=== PATIENT | female | born 1955 | race Caucasian/White ===

== ENCOUNTER 2018-12-18 03:41 | Observation (INO) ==
[2018-12-18] MEDS ORDERED: NS 1,000 ML IV ONE (04:47)
[2018-12-18] MEDS ORDERED: ZOFRAN IV ONE (04:47)
--- NOTE | 2018-12-18 04:53 | PROVIDER DOCUMENTATION ---
HPI-General Adult - General Chief Complaint: Syncope Stated Complaint: orthostatic hypotension Time Seen by Provider: 12/18/18 04:46 Source: patient, family Allergies/Adverse Reactions: Patient Allergies Allergy/AdvReac Type Severity Reaction Status Date / Time Penicillins Allergy Unknown Verified 12/18/18 04:04 Home Medications: Home Medication List Medication Instructions Recorded Confirmed Last Taken Type Meloxicam 1 tab PO DAILY 12/18/18 12/18/18 12/17/18 History Omeprazole 1 cap PO DAILY 12/18/18 12/18/18 12/17/18 History Tramadol HCl 1 tab PO TID 12/18/18 12/18/18 12/17/18 History - History of Present Illness -Gen Adult Nature of Presenting Problems: PT ABLE TO GIVE A GOOD HX AND SUPLIMENTS. PT REPORTS UP TONIGHT TO GO TO BATHROOM, #2, FELT WEAK AND FAINTY, TRIED TO GET FROM TOILET BACK TO BED AND SYNCOPE BREIFLY ON BATHROOM FLOOR, DEFECATED A 2ND TIME IN THE FLOOR, PRESENT AND CLEANED HER UP PRIOR TO TRANSPORT. EMS REPORTED 'TILT' ON INITIAL EVALUATION. DENIES RECENT FEVER, URI,COUGH,N/V/D ,DYSURIA,FEVER OR CHILLS. LOTS OF SITUATIONAL STRESS. Review of Systems - Adult - REVIEW OF SYSTEMS - ADULT Constitutional: reports: no symptoms reported. denies: chills, fever Eyes: reports: no symptoms reported Ears, Nose, Mouth & Throat: reports: no symptoms reported Cardiovascular: reports: no symptoms reported Respiratory: reports: no symptoms reported Gastrointestinal: reports: no symptoms reported Genitourinary: reports: no symptoms reported Musculoskeletal: reports: no symptoms reported Integumentary: reports: no symptoms reported Neurological: reports: no symptoms reported Psychiatric: reports: no symptoms reported Endocrine: reports: no symptoms reported Hematologic/Lymphatic: reports: no symptoms reported Allergic/Immunologic: reports: no symptoms reported All Other Systems: Reviewed and Negative Past History - Adult - PAST MEDICAL HISTORY-ADULT Review of Records: reports: Nursing Assessment Review, Medications Reviewed, Social history reviewed & non-contributory. Major Childhood Illnesses: reports: denies history Cardiovascular: reports: denies history Respiratory: reports: denies history Gastrointestinal: reports: denies history Obstetrical/Gynecological: reports: denies history Genitourinary: reports: denies history Musculoskeletal: reports: denies history Neurological: reports: denies history Endocrine/Immune: reports: denies history Other Conditions: reports: denies history Physical Exam-General - PHYSICAL EXAM-ADULT Initial Vital Signs Reviewed: Yes - CONSTITUTIONAL General Appearance: appears well, alert, no apparent distress - EYES Eyes: PERRL/EOMI, pink conjunctivae - HEAD, EARS, NOSE, MOUTH & THROAT HENMT: normocephalic/atraumatic, moist mucous membranes - NECK Neck: non-tender, full range of motion, supple - RESPIRATORY Respiratory: chest non-tender, lungs clear, normal breath sounds, no respiratory distress, no accessory muscle use - CARDIOVASCULAR Cardiovascular: normal peripheral pulses, regular rate, rhythm, no edema, no JVD , no murmur - GASTROINTESTINAL (ABDOMEN) Abdominal Exam: normal bowel sounds, non tender, soft, no organomegaly, no pulsatile mass - MUSCULOSKELETAL Extremity: normal range of motion, non-tender, normal gait - SKIN Integumentary: normal color, normal turgor, warm/dry. negative: jaundice - NEUROLOGIC Neurologic: [employer] portal developer II-XII nml as tested, grossly normal, no motor/sensory deficits. negative: abnormal [employer] portal developer II-XII, facial droop, motor weakness, sensory deficit - PSYCHIATRIC Psych/Mental Status: normal mood/affect, normal thought content, normal thought process, oriented x 3 Progress - PLAN OF CARE/RESULTS Progress/Plan/Lab Results: Vital Signs - 8 hr 12/18/18 04:27 Temperature 97.6 F Pulse Rate 88 Respiratory Rate 14 Blood Pressure 107/90 O2 Sat by Pulse Oximetry 100 Laboratory Results - last 24 hr 12/18/18 04:40 POC Glucose 97 Orders Category Date Time Status Cardiac Monitoring DIRECTED Care 12/18/18 04:47 Ordered Saline Loc NOW Care 12/18/18 04:47 Ordered CBC WITH ELECTRONIC DIFF [HEME] Stat Lab 12/18/18 04:47 Uncollected COMPREHENSIVE METABOLIC PANEL [CHEM] Stat Lab 12/18/18 04:47 Uncollected LACTATE, PLASMA [CHEM] Stat Lab 12/18/18 04:48 Uncollected TROPONIN T Stat Lab 12/18/18 04:48 Uncollected URINALYSIS W/POSS RFLX CULT [URINALYSIS] Stat Lab 12/18/18 04:48 Uncollected URINE DRUG SCREEN Stat Lab 12/18/18 04:48 Uncollected Ns 1000 ml IV Bolus X1 Med 12/18/18 04:47 Ordered 0.9% Sodium Chloride Inj [Ns] 1,000 ml IV 999 mls/hr Ondansetron [Zofran] Med 12/18/18 04:47 Once 4 mg IV NOW ONE EKG [EKG] Stat Ther 12/18/18 04:47 Ordered Result Diagrams: 12/18/18 05:51 12/18/18 05:51 - REASSESSMENT Reassessment #1 Time Reassessed: 08:14 Status: improving (Seen and examined by me. Case discussed with Dr. Chin at shift change. Awaiting labs for syncope. Patient was also incontinent after syncope. Has elevated D-Dimer. Will check CTA to r/o PE. Patient also has has sacral pain on exam after syncope, so will obtain imaging to r/o fracture.) Reassessment #2 Time Reassessed: 10:07 Status: improving (Given IVF, tylenol for pain, zofran for nausea.) - EKG 1 Time of EKG reading by physician:: 10:15 EKG Read and Signed by:: Cole Vizcaino EKG Interpretation (*Must complete 3 of following elements*): Normal Rate: 90 Rhythm: NSR [place]: normal QRS: normal, other (early transition) [place] Interval: normal ST Wave: normal Prior EKG Comparison: no prior EKG - CT/MRI 1 CT Study: Head Impression: Normal, See EMR Report ( Signed EXAM: CT HEAD W/O CONTRAST 12/18/2018 HISTORY: syncope TECHNIQUE: This exam was performed using automated exposure control, adjustment of mA or kV according to patient size, and/or use of iterative reconstruction technique. COMMENT: There is no evidence of mass effect, bleed, or abnormal extra-axial fluid collection. The visualized paranasal sinuses are clear. The calvarium is intact. IMPRESSION: No evidence of acute intracranial disease. Electronically signed by Calvin Durant 12/18/2018 8:58 AM 12/18/18 0858 Interpreting Physician: Calvin Durant MD Dictated Date/Time: 12/18/18 0857 cc: Cole Vizcaino MD; Oscar Jones MD) 2 CT Study: Pelvis Impression: Abnormal ( EXAM: CT PELVIS W/O CONTRAST 12/18/2018 HISTORY: syncope, sacral pain TECHNIQUE: This exam was performed using automated exposure control, adjustment of mA or kV according to patient size, and/or use of iterative reconstruction technique. COMMENT: There is vacuum disc phenomenon at the L5-S1 level. There are severe facet changes present at L4-5 and there is mild spinal stenosis at L4-5. There is disc bulge at the L5-S1 level. There is no evidence of fracture or dislocation. There is a bone island in the proximal right femur. No abnormal fluid collections are present. IMPRESSION: No evidence of acute bony abnormality. Electronically signed by Calvin Durant 12/18/2018 9:00 AM 12/18/18 09 Interpreting Physician: Calvin Durant MD Dictated Date/Time: 12/18/18 0858 cc: Cole Vizcaino MD; Oscar Jones MD), See EMR Report 3 CT Study: Lumbar Spine Impression: Abnormal ( EXAM: CT LUMBAR SPINE W/O CONTRAST 12/18/2018 HISTORY: syncope, low back pain TECHNIQUE: This exam was performed using automated exposure control, adjustment of mA or kV according to patient size, and/or use of iterative reconstruction technique. COMMENT: There is no evidence of fracture or subluxation. At the T12-L1 level there is no spinal or foraminal stenosis. At L1-2 there is some disc bulge without evidence of spinal or foraminal stenosis. At L2-3 there is no evidence of spinal or foraminal stenosis. There is some disc bulge. At L3-4 there is marked disc bulge with ligamentum flavum hypertrophy and a moderate degree of spinal stenosis. The foramina are patent. At the L4-5 level there is hypertrophic facet change bilaterally with some disc bulge and moderate spinal stenosis. The foramina are patent bilaterally. At L5-S1 there is disc bulge and vacuum disc phenomenon. The foramina appear to be patent. There is no evidence of significant spinal stenosis. IMPRESSION: Degenerative disc disease with multilevel spinal stenosis as described above. Electronically signed by Calvin Durant 12/18/2018 9:02 AM 12/18/18 0902 Interpreting Physician: Calvin Durant MD Dictated Date/Time: 12/18/18 09 cc: Cole Vizcaino MD; Oscar Jones MD), See EMR Report 4 CT Study: Angiogram Impression: Normal, See EMR Report (EXAM: CT ANGIOGRM PULMONARY ARTERIES 12/18/2018 HISTORY: syncope, positive d-dimer TECHNIQUE: This exam was performed using automated exposure control, adjustment of mA or kV according to patient size, and/or use of iterative reconstruction technique. COMMENT: There are no previous studies. 3-D MIPS were performed. There are no filling defects in the pulmonary arteries. The ascending aorta is ectatic measuring over 4.3 cm in diameter. There is no evidence of dissection. There is a small hiatal hernia. There is no evidence of significant adenopathy or abnormal fluid collections. The gallbladder is distended. The common bile duct measures between seven and 8 mm in diameter. There is some gas seen in the liver anterolaterally. This may be in a biliary duct or possibly a branch of the portal vein. There is no history of recent instrumentation of the biliary system. No gas is seen in the main portal vein or its tributaries. There is no evidence of acute pulmonary parenchymal disease. The regional skeleton appears to be intact. There are postsurgical changes in the right humerus. IMPRESSION: No evidence of pulmonary emboli. Ectasia of the ascending aorta. Biliary or portal venous gas as described. Electronically signed by Calvin Durant 12/18/2018 9:09 AM 12/18/18 0909 Interpreting Physician: Calvin Durant MD Dictated Date/Time: 12/18/18 0902 cc: Cole Vizcaino MD; Oscar Jones MD) - CONSULTS/PCP/HOSPITALIST Notification #1 *Consult/PCP/Hospitalist*: CRISTEL Urbano paged at [phone] Time Discussed: 10:13 Consult Disposition: Admit (to Dr. Landers) - CHANGE OF SHIFT REPORT (ED Provider) 1 Report Given and Care Transferred to:: DR Sherrie VIZCAINO Time of Transfer: 07:00 Items Pending: Labs Departure - Departure Date of Disposition Decision: 12/18/18 Time of Disposition Decision: 10:21 DIAGNOSIS: Syncope and collapse determined by examination Contusion of sacral region Qualifiers: Encounter type: initial encounter Qualified Code(s): S30.0XXA - Contusion of l ower back and pelvis, initial encounter Disposition: ADMITTED INPATIENT 09 Certified Medical Emergency: Emergent Condition: Stable Referrals and Follow-Ups: Oscar Jones MD [Primary Care Provider] - - Critical Care Note This patient required my direct & personal management of CC.: No Attestation - Physician/ KELLIE Attestation Patient care was provided by Advanced Practice Provider:: No The physician spent face to face time with patient:: Yes Advanced Practice Provider documentation review:: Supervising physician onsite and consulted in the evaluation and care of this patient. The physician did have a face to face encounter with the patient.
[2018-12-18 06:49] LABS: BASO# 0.02 X1000 (0.0-0.2); BASO% 0.2 % (0.0-0.8); EOS# 0.03 X1000 (0.0-0.7); EOS% 0.3 % (0.0-10.0); HEMATOCRIT 45.4 % (37.0-47.0); HEMOGLOBIN 15.1 g/dL (12.0-16.0); IMM GRAN# 0.03 X1000 (0.0-0.04); IMM GRAN% 0.3 % (0.0-0.5); LYMPH# 2.46 X1000 (1.2-3.4); LYMPH% 22.4 % (20.5-51.1); MCH 30.8 PG (27-31); MCHC 33.3 g/dL (33-37); MCV 92.7 FL (81-99); MONO# 0.83 X1000 (0.11-0.59); MONO% 7.6 % (1.7-9.3); NEUT% 69.2 % (42.2-75.2); PLT 229 X1000 (130-400); RDW 13.5 % (11.5-14.5); WBC 10.97 X1000 (4.8-10.8)
[2018-12-18 07:34] LABS: AGAP 13; ALB/GLOB RATIO 1.4; ALBUMIN 4.2 g/dL (3.5-5.0); ALKALINE PHOSPHATASE 86 U/L (32-104); BUN 12 mg/dL (8-22); CALCIUM 9.8 mg/dL (8.8-10.2); CHLORIDE 103 mmol/L (98-107); COSMO 282; CREATININE 0.7 mg/dL (0.5-0.9); ESTIMATED GFR > 60; GLUCOSE 91 mg/dL (70-104); GOT 31 U/L (10-30); GPT 28 U/L (10-36); POTASSIUM 4.7 mmol/L (3.5-5.1); SODIUM 142 mmol/L (136-145); TCO2 26 mmol/L (25-35); TOTAL BILIRUBIN 0.29 mg/dL (0.20-1.00); TOTAL PROTEIN 7.2 g/dL (6.3-8.3)
[2018-12-18 08:03] LABS: URINE SOURCE CLEAN CATCH
[2018-12-18] MEDS ORDERED: TYLENOL PO ONE (08:16)
[2018-12-18 08:18] LABS: BILIRUBIN URINE NEGATIVE (NEGATIVE); BLOOD URINE NEGATIVE (NEGATIVE); COLOR STRAW; GLUCOSE URINE NEGATIVE (NEGATIVE); KETONE URINE NEGATIVE (NEGATIVE); LEUKOCYTES URINE NEGATIVE (NEGATIVE); NITRITE URINE NEGATIVE (NEGATIVE); PROTEIN URINE NEGATIVE (NEGATIVE); SP GRAVITY URINE 1.007; TURBIDITY URINE CLEAR (CLEAR); UROBILINOGEN URINE NORMAL (NORMAL)
[2018-12-18 08:19] LABS: UR AMPHETAMINES QUAL NONE DETECTED (NONE DETECT); UR BARBITUATES QUAL NONE DETECTED (NONE DETECT); UR BENZODIAZEPIN QUAL NONE DETECTED (NONE DETECT); UR CANNABINOIDS QUAL NONE DETECTED (NONE DETECT); UR COCAINE QUAL NONE DETECTED (NONE DETECT); UR METHADONE QUAL NONE DETECTED (NONE DETECT); UR OPIATES QUAL NONE DETECTED (NONE DETECT); UR OXYCODONE QUAL NONE DETECTED (NONE DETECT); UR PCP QUAL NONE DETECTED (NONE DETECT)
[2018-12-18 08:20] LABS: UR EPITHELIAL CELLS <10 /HPF (<10); URINE BACTERIA NEGATIVE /HPF; URINE RBC <10 /HPF (<10); URINE WBC <10 /HPF (<10)
--- NOTE | 2018-12-18 09:00 | Diag Imaging Result Doc PS360 ---
EXAM: CT HEAD W/O CONTRAST 12/18/2018 HISTORY: syncope TECHNIQUE: This exam was performed using automated exposure control, adjustment of mA or kV according to patient size, and/or use of iterative reconstruction technique. COMMENT: There is no evidence of mass effect, bleed, or abnormal extra-axial fluid collection. The visualized paranasal sinuses are clear. The calvarium is intact. IMPRESSION: No evidence of acute intracranial disease. Electronically signed by Calvin Durant 12/18/2018 8:58 AM
--- NOTE | 2018-12-18 09:02 | Diag Imaging Result Doc PS360 ---
EXAM: CT PELVIS W/O CONTRAST 12/18/2018 HISTORY: syncope, sacral pain TECHNIQUE: This exam was performed using automated exposure control, adjustment of mA or kV according to patient size, and/or use of iterative reconstruction technique. COMMENT: There is vacuum disc phenomenon at the L5-S1 level. There are severe facet changes present at L4-5 and there is mild spinal stenosis at L4-5. There is disc bulge at the L5-S1 level. There is no evidence of fracture or dislocation. There is a bone island in the proximal right femur. No abnormal fluid collections are present. IMPRESSION: No evidence of acute bony abnormality. Electronically signed by Calvin Durant 12/18/2018 9:00 AM
--- NOTE | 2018-12-18 09:05 | Diag Imaging Result Doc PS360 ---
EXAM: CT LUMBAR SPINE W/O CONTRAST 12/18/2018 HISTORY: syncope, low back pain TECHNIQUE: This exam was performed using automated exposure control, adjustment of mA or kV according to patient size, and/or use of iterative reconstruction technique. COMMENT: There is no evidence of fracture or subluxation. At the T12-L1 level there is no spinal or foraminal stenosis. At L1-2 there is some disc bulge without evidence of spinal or foraminal stenosis. At L2-3 there is no evidence of spinal or foraminal stenosis. There is some disc bulge. At L3-4 there is marked disc bulge with ligamentum flavum hypertrophy and a moderate degree of spinal stenosis. The foramina are patent. At the L4-5 level there is hypertrophic facet change bilaterally with some disc bulge and moderate spinal stenosis. The foramina are patent bilaterally. At L5-S1 there is disc bulge and vacuum disc phenomenon. The foramina appear to be patent. There is no evidence of significant spinal stenosis. IMPRESSION: Degenerative disc disease with multilevel spinal stenosis as described above. Electronically signed by Calvin Durant 12/18/2018 9:02 AM
--- NOTE | 2018-12-18 09:12 | Diag Imaging Result Doc PS360 ---
EXAM: CT ANGIOGRM PULMONARY ARTERIES 12/18/2018 HISTORY: syncope, positive d-dimer TECHNIQUE: This exam was performed using automated exposure control, adjustment of mA or kV according to patient size, and/or use of iterative reconstruction technique. COMMENT: There are no previous studies. 3-D MIPS were performed. There are no filling defects in the pulmonary arteries. The ascending aorta is ectatic measuring over 4.3 cm in diameter. There is no evidence of dissection. There is a small hiatal hernia. There is no evidence of significant adenopathy or abnormal fluid collections. The gallbladder is distended. The common bile duct measures between seven and 8 mm in diameter. There is some gas seen in the liver anterolaterally. This may be in a biliary duct or possibly a branch of the portal vein. There is no history of recent instrumentation of the biliary system. No gas is seen in the main portal vein or its tributaries. There is no evidence of acute pulmonary parenchymal disease. The regional skeleton appears to be intact. There are postsurgical changes in the right humerus. IMPRESSION: No evidence of pulmonary emboli. Ectasia of the ascending aorta. Biliary or portal venous gas as described. Electronically signed by Calvin Durant 12/18/2018 9:09 AM
--- NOTE | 2018-12-18 10:29 | EKG Report ---
Test Performed on : 12/18/2018 10:13:18 AM Test Reason : SYNCOPE Blood Pressure : / mmHG Vent. Rate : 090 BPM Atrial Rate : 090 BPM P-R Int : 156 ms QRS Dur : 082 ms QT Int : 374 ms P-R-T Axes : 031 -06 032 degrees QTc Int : 457 ms Normal sinus rhythm. Normal ECG No previous ECGs available Unconfirmed Result
[2018-12-18] MEDS ORDERED: TYLENOL PO PRN (10:40)
[2018-12-18] MEDS ORDERED: ZOFRAN IV PRN (10:40)
--- NOTE | 2018-12-18 11:34 | Diag Imaging Result Doc PS360 ---
EXAM: MRI BRAIN W/WO CONTRAST 12/18/2018 HISTORY: syncope TECHNIQUE: T1 sagittal, axial and post gadolinium-enhanced axial with coronal reformation, T2, FLAIR, DWI axial and coronal gradient echo. COMMENT: There is some motion artifact. There is no evidence of mass effect, bleed, or abnormal extra-axial fluid collection. There are no previous studies. There is no evidence of restricted diffusion. No abnormal gadolinium enhancement is present. IMPRESSION: No evidence of acute intracranial disease. Electronically signed by Calvin Durant 12/18/2018 11:31 AM
--- NOTE | 2018-12-18 11:36 | Diag Imaging Result Doc PS360 ---
EXAM: MRA BRAIN W/O CONTRAST 12/18/2018 HISTORY: syncope TECHNIQUE: 3-D [id number] COMMENT: There is no evidence of aneurysm or major branch occlusion. No other definite vascular abnormalities are demonstrated. IMPRESSION: Normal MRA of the brain. Electronically signed by Calvin Durant 12/18/2018 11:34 AM
[2018-12-18 13:12] LABS: FREE T4 1.36 ng/dL (0.93-1.70); TSH 1.26 uIUmL (0.27-4.20)
[2018-12-18] MEDS: NS 1,000 ML IV SCH ×2 (14:42→21:26)
--- NOTE | 2018-12-18 20:39 | EEG REPORT ---
DATE: 12/18/2018 COMMENT: This is a digitally recorded EEG on a 63-year-old patient with reported recent syncope. FINDINGS: During waking, medium amplitude 9-10 hertz, posterior rhythm is present symmetrically and reacts normally to eye opening. Background contains polymorphic and rhythmic theta frequencies over the frontal and central regions symmetrically. There is occasional higher amplitude generalized rhythmic slowing occurring in 0.5-2.5 second bursts. Drowsing occurred with appearance of more generalized slowing. Stage 2 sleep was not recorded. Photic stimulation did not significantly alter the record. No definite epileptiform discharge was identified. INTERPRETATION: Abnormal EEG because of paroxysmal generalized rhythmic slowing. CORRELATION: This is indicative of a diffuse encephalopathy and is nonspecific. The absence of epileptiform discharges on a single EEG does not exclude a clinical diagnosis of seizures. cc: MD Yolie Hahn III, CRNP MTDD
--- NOTE | 2018-12-18 20:39 | HISTORY AND PHYSICAL ---
PRIMARY CARE PROVIDER: Oscar Jones MD CHIEF COMPLAINT: Passed out twice. HISTORY OF PRESENT ILLNESS: Ms Sammie Bradley is a 63-year-old female with a medical history of osteoarthritis, GERD, who is now here with complaints of having 2 pass-out spells around 2:30 this morning. She went to the bathroom to have a bowel movement. She states the bowel movement was normal, but when she was sitting there, she felt like she was just going to black out. There was no roaring. There was no spinning. She just felt like she was going to go down, so she went ahead and got up to go back to bed and had a fall in the andujar, waking up her , who then went to go see to her. She passed out a 2nd time and had a bowel incontinence only. He states that she was mentally clear, there was no altered mentation, no weakness on 1 side or the other, and he called an ambulance. Ambulance had apparently reported that she had low blood pressures, and she received 1 L of saline and that she also had a blood sugar level of 75, where she was given food and Gatorade. The only pain that she has from the fall is she feels like her tailbone hurt. Imagings so far are all negative for any acute findings, so we are going to monitor her overnight, and hopefully we will be able to discharge tomorrow as long as everything is stable. PAST MEDICAL HISTORY: 1. Osteoarthritis. 2. GERD. 3. History of hypertension prior to weight loss, now is resolved. SURGICAL HISTORY: 1. Appendectomy. 2. Right upper arm danay. 3. History of endometriosis with laser surgery on that. SOCIAL HISTORY: Quit smoking 30 years ago, prior to that she smoked 1 pack per day for 10 years. Only drinks socially. Denies any illicit drug use. She is working. She is . FAMILY HISTORY: Mother had lung cancer. She had 1 aunt with colon cancer, another aunt with bone cancer. Her father had blood clots. ALLERGIES: Penicillin, unknown reaction. She was told by her mother at a young age that she had an allergy to it. HOME MEDICATIONS: 1. Mobic 15 mg p.o. daily. 2. Omeprazole 40 mg p.o. daily. 3. Ultram 50 mg p.o. t.i.d. REVIEW OF SYSTEMS: A 14 point review of systems is complete, and all were negative except for those mentioned in above HPI. She states she has lost 50+ pounds intentionally, and it has taken her a year to do it. PHYSICAL EXAMINATION: VITAL SIGNS: Temperature 98.3 degrees, heart rate 82, respiratory rate 18, blood pressure 140/79. She had orthostatic vitals: Supine heart rate 90, sitting heart rate 102, standing heart rate 107. Supine blood pressure 115/79, sitting blood pressure 119/82, standing blood pressure 120/86. GENERAL: Ms. Sammie Bradley is a 63-year-old female. She is in no acute distress. She is able to answer questions appropriately. HEENT: Atraumatic, normocephalic. Pupils equal, round, reactive to light. Extraocular movements intact. Mucous membranes are moist. NECK: Trachea midline. CARDIOVASCULAR: S1, S2, regular rate and rhythm. No rubs, gallops, murmurs. No lower extremity edema. +2 dorsalis and radial pulses. Negative JVD or carotid bruits. PULMONARY: Clear to auscultation. Bilateral breath sounds. No accessory muscle use or work of breathing noted. GASTROINTESTINAL: Soft, nontender, nondistended. Positive bowel sounds x4. EXTREMITIES: Moves all extremities equally with full range of motion. NEUROLOGIC: A and O x3. Follows commands. Sensory is intact. SKIN: Warm, dry, intact. LABORATORY DATA: White blood cells 10,000, hemoglobin 15, hematocrit 45, and platelet count 229,000. D-dimer 1.62. Sodium 142, potassium 4.7, BUN 12, creatinine 0.7, glucose 91, calcium 9.8. Magnesium 2.3. Bilirubin 0.29, AST 31, ALT 28. CK 65, troponin less than 0.01. Albumin 4.2. Serum lactate 2.5. TSH 1.26, free T4 is 1.36. Urinalysis negative. Urine drug screen negative. IMAGING: Pulmonary arteriogram: No pulmonary emboli, ectasia of the ascending aorta, biliary or portal venous gas as described. Head CT: No evidence of acute intracranial disease. Pelvic CT: No acute abnormalities. Lumbar spine CT: Degenerative disk disease with spinal stenosis. Brain MRA: Normal. Brain MRI: Normal. DIAGNOSTIC STUDIES: EKG: Normal sinus rhythm, rate 90, QTc is 457. ASSESSMENT AND PLAN: 1. Syncope, likely vasovagal or orthostatic hypotension, which has resolved since she has had a liter of fluids. All imaging negative so far. If no more events through the night, most likely can be discharged home. 2. Osteoarthritis, stable. 3. Gastroesophageal reflux disease. Continue her proton pump inhibitor. 4. Deep venous thrombosis prophylaxis. SCDs. Dictated by CRISTEL Curiel for Prasanth Landers MD cc: CRISTEL Curiel Patient with 2 episodes of syncope with what sounds like orthostatic hypotension. neuro workup already mostly done but low suspicion for neurologic event. no focal deficits on exam and nothing in history that really sounds like a seizure. will complete cardiac workup but if that's negative and she continues to improve with fluids then she can likely be discharged tomorrow. MICHELLE
--- NOTE | 2018-12-18 21:22 | ECHO REPORT ---
ORDER DATE: 12/18/2018 INDICATIONS: Syncope. FINDINGS: 1. Right atrium appears normal size. 2. Trace tricuspid regurgitation. RV systolic pressure of 32. 3. Normal RV size and systolic function. 4. Trace pulmonic insufficiency. 5. Normal left atrial size with a dimension of 2 cm. 6. No mitral prolapse. Mild mitral regurgitation. 7. Normal LV size, end-diastolic dimension of 4 cm. Normal wall thicknesses with a posterior and interventricular septal wall thickness is 0.9 and 1.0 cm respectively. Normal LV systolic function. Estimated EF 55% to 60% percent with normal wall motion. 8. Aortic valve opens well. No evidence of stenosis or insufficiency. 9. Aorta is somewhat dilated with the ascending root being 4 cm. 10. No pericardial effusion seen. cc: MD Yolie Espinoza CRNP
[2018-12-19] MEDS: NS 1,000 ML IV SCH (06:16)
[2018-12-19] MEDS ORDERED: PRILOSEC PO SCH ×2 (07:00)
--- NOTE | 2018-12-19 07:32 | EKG Report ---
Test Performed on : 12/19/2018 07:10:16 AM Test Reason : syncope Blood Pressure : / mmHG Vent. Rate : 088 BPM Atrial Rate : 088 BPM P-R Int : 166 ms QRS Dur : 080 ms QT Int : 370 ms P-R-T Axes : 051 010 046 degrees QTc Int : 447 ms Normal sinus rhythm. Normal ECG When compared with ECG of 18-DEC-2018 10:13, (Unconfirmed) No significant change was found Unconfirmed Result
[2018-12-19 07:33] LABS: BASO# 0.01 X1000 (0.0-0.2); BASO% 0.2 % (0.0-0.8); EOS# 0.09 X1000 (0.0-0.7); EOS% 1.4 % (0.0-10.0); HEMATOCRIT 39.9 % (37.0-47.0); HEMOGLOBIN 13.1 g/dL (12.0-16.0); LYMPH# 2.16 X1000 (1.2-3.4); LYMPH% 33.3 % (20.5-51.1); MCH 30.8 PG (27-31); MCHC 32.8 g/dL (33-37); MCV 93.7 FL (81-99); MONO# 0.41 X1000 (0.11-0.59); MONO% 6.3 % (1.7-9.3); MPV 11.1 FL (7.4-10.4); NEUT# 3.81 X1000 (1.4-6.5); NEUT% 58.8 % (42.2-75.2); PLT 207 X1000 (130-400); RBC 4.26 XMIL (4.2-5.4); RDW 13.4 % (11.5-14.5); WBC 6.48 X1000 (4.8-10.8)
[2018-12-19 07:35] LABS: INR 1.02; PROTIME 13.5 Seconds (11.0-16.0)
[2018-12-19 07:36] LABS: PTT 25.1 Seconds (22.3-41.8)
[2018-12-19 07:39] VITALS: BP 117/79
[2018-12-19 08:10] LABS: AGAP 10; ALB/GLOB RATIO 1.2; ALBUMIN 3.3 g/dL (3.5-5.0); ALKALINE PHOSPHATASE 67 U/L (32-104); BUN 7 mg/dL (8-22); CALCIUM 8.5 mg/dL (8.8-10.2); CHLORIDE 110 mmol/L (98-107); COSMO 285; CREATININE 0.6 mg/dL (0.5-0.9); ESTIMATED GFR > 60; GLUCOSE 99 mg/dL (70-104); GOT 20 U/L (10-30); GPT 20 U/L (10-36); MAGNESIUM 2.1 mg/dL (1.5-2.7); POTASSIUM 3.6 mmol/L (3.5-5.1); SODIUM 144 mmol/L (136-145); TCO2 24 mmol/L (25-35); TOTAL BILIRUBIN 0.42 mg/dL (0.20-1.00)
[2018-12-19] MEDS ORDERED: MOBIC PO SCH ×2 (09:00→09:04)
[2018-12-19] MEDS ORDERED: ULTRAM PO SCH (14:00)
--- NOTE | 2018-12-19 20:19 | Carotid Study ---
DATE: 12/18/2018 REQUESTING PROVIDER: Giovany. 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 INDICATION: Syncope. EQUIPMENT: [employer] E9 ultrasound system with a 9L-D transducer. FINDINGS: Complete diagram ultrasound image can be seen, scanned in patient's medical record. The peak systolic velocity on the right side is noted to be in the mid internal carotid artery, and is noted to be 75. The peak systolic velocity noted on the left side is noted in the distal carotid artery, and is noted to be 97. The calculated internal common ratio on the right is 0.72 and left 1.06. The calculated stenosis on the right is 0 to 39 percent, left 0 to 39 percent. There appears to be some atherosclerosis, but at this time does not produce a hemodynamically significant flow-limiting stenosis. Both vertebral arteries were antegrade flow. INTERPRETATION: By strict velocity criteria, no hemodynamically significant flow-limiting stenosis noted. cc: MD Yolie Park CRNP
== END 2018-12-19 13:07 | disposition home or self-care (01) ==
LOC: ED 03:41 → INTOOBSV 03:42 → EDIPHOLD 03:42 → 3N 14:23
PROVIDERS: ATTEND Internal Medicine